=== PATIENT | male | born 1985 | race Two or more races ===

== ENCOUNTER 2022-12-27 18:38 | Emergency (ER) | payer OTHER, SELFPAY ==
[2022-12-27 18:50] VITALS: BP 116/67; PULSE 93; RESP 19; TEMP 36.7; O2SAT 94; BMI 26.1
--- NOTE | 2022-12-27 18:52 | ED_ITS ---
HPI - Abdominal Pain General Chief Complaint: Abdominal Pain Stated Complaint: Abdominal pain Time Seen by Provider: 12/27/22 23:19 Source: patient Mode of arrival: ambulatory Limitations: no limitations History of Present Illness HPI narrative: Patient with anxiety , substance/cocaine abuse, chronic abdominal pain for last 2 years no nausea no vomiting no diarrhea pain localized to the left gets worse when she gets anxious and after eating food has normal bowel movements no fever no chills Related Data Previous Rx's Medication Instructions Recorded dicyclomine 20 mg tablet 20 mg PO QID PRN abdominal pain 12/27/22 #20 tabs omeprazole 40 mg capsule,delayed 40 mg PO DAILY #20 caps 12/27/22 release Allergies Allergy/AdvReac Type Severity Reaction Status Date / Time couch Allergy Rash Verified 12/27/22 18:56 mite-Dermatophagoides Allergy Sneezing Verified 12/27/22 18:56 farinae, adilene [dust mite - [place]] Review of Systems Review of Systems Yes all other systems are reviewed and are negative [facility] Social History Social History Advance Directives: No Advance Directives Information Provided: No Physical Exam ED Vital Signs: Vital Signs - 24 hr 12/27/22 18:50 Temperature 98.0 F Pulse Rate 93 Respiratory Rate 19 Blood Pressure 116/67 Pulse Oximetry 94 Oxygen Delivery Method Room Air BMI result Body Mass Index 26.1 Appearance: Alert. Oriented X3. No acute distress. Eyes: No pallor or icterus ENT: Pharynx normal. Oral Mucosa moist Neck: Normal inspection. Neck supple. CVS: Normal heart rate and rhythm. Pulses normal. Respiratory: No respiratory distress. Equal air entry bilateral, no wheezing/rales/rhonchi Abdomen: Soft , Bowel sounds are present, mild diffuse tenderness left upper abdomen and epigastric no rebound tenderness or guarding Skin: Skin warm and dry. Normal skin color. Normal skin turgor. Extremities: No lower extremity edema. No calf tenderness Neuro: Oriented X 3. Course Course Course Narrative: RME: 37yo M w/no sig PMHx c/o L sided abdominal pain x3 years worsening yesterday. Pain worse after eating. denies N/V, diarrhea, urinary sx, fever Labs, UA ordered Full HPI, ROS and PE to be performed by primary ED provider. Medical Decision Making Medical Decision Making MDM Narrative: Patient anxiety nonspecific abdominal pain likely GERD/IBS discharge patient home on Prilosec and dissect Differential Diagnosis Differential Diagnoses: The differential diagnosis associated with the presentation includes Nonspecific and oral pain/anxiety/GERD/IBS Lab Data [facility] Lab Attestation statement: I reviewed the patient's lab results. 12/27/22 19:20 12/27/22 19:20 Labs: Lab Results 12/27/22 Range/Units 19:20 WBC 8.1 (4.8-10.8) X10*3/uL RBC 4.68 (4.60-5.80) X10*6/uL Hgb 14.5 (14.0-18.0) g/dl Hct 42.3 (42.0-52.0) % MCV 90.4 (80.0-98.0) fL MCH 31.0 (27.0-33.0) pg MCHC 34.3 (31.0-36.0) g/dl RDW 13.4 (11.0-16.0) % Plt Count 237 (160-400) X10*3/uL MPV 10.3 (9.4-12.4) fL Immature Gran % (Auto) 0.2 (0.0-0.4) % Neut % (Auto) 55.2 (45-73) % Lymph % (Auto) 35.6 (20-40) % [place] % (Auto) 6.4 (2-11) % Eos % (Auto) 2.1 (0-4) % Baso % (Auto) 0.5 (0-2) % Lymph # (Auto) 2.9 (1.2-4.9) X10*3/uL [place] # (Auto) 0.5 (0.1-1.2) X10*3/uL Eos # (Auto) 0.2 (0.0-0.4) X10*3/uL Baso # (Auto) 0.0 (0.0-0.2) X10*3/uL Abs Immat Gran (auto) 0.02 (0.00-0.03) X10*3/uL Absolute Neuts (auto) 4.5 (2.0-8.3) x10*3/uL Absolute Nucleated RBC 0.000 (0.0-0.012) X10*3/uL Nucleated RBC % (auto) 0.0 (0.0-0.2) /100WBC Sodium 144 (135-145) mmol/L Potassium 3.9 (3.3-5.1) mmol/L Chloride 108 (96-108) mmol/L Carbon Dioxide 19 L (22-29) mmol/L Anion Gap 21 H (12-20) BUN 14 (9-16) mg/dL Creatinine 0.75 (0.5-1.4) mg/dL Estim Creat Clear Calc 99.3 Estimated GFR > 60 Random Glucose 88 (60-115) mg/dL Calcium 10.0 (8.4-10.2) mg/dL Magnesium 2.0 (1.6-2.6) mg/dL Total Bilirubin 0.2 (0.0-1.0) mg/dL Direct Bilirubin < 0.2 (0.0-0.5) mg/dL AST 13 (5-37) U/L ALT 12 (0-40) U/L Alkaline Phosphatase 64 (39-117) U/L Total Protein 7.0 (6.5-8.0) g/dL Albumin 4.4 (3.5-5.0) g/dL Lipase 35 (8-78) U/L Urine Color Yellow Urine Appearance Clear Urine pH 6.0 (5.0-9.0) Ur Specific [place] 1.025 (1.005-1.025) Urine Protein Negative (Neg-Trace) mg/dL Urine Glucose (UA) Negative (Negative) mg/dL Urine Ketones Negative (Negative) mg/dL Urine Blood Negative (Negative) Urine Nitrite Negative (Negative) Ur Leukocyte Esterase Negative (Negative) Discharge Plan Discharge Clinical Impression: Irritable bowel syndrome, Chronic GERD Patient Disposition: Home, Self-Care Instructions: Irritable Bowel Syndrome (ED), Gastroesophageal Reflux Disease (ED) Additional Instructions: Drink plenty of fluids Avoid fried food Take medication as prescribed and follow with PCP Prescriptions: New dicyclomine 20 mg tablet 20 mg PO QID PRN (Reason: abdominal pain) Qty: 20 0RF omeprazole 40 mg capsule,delayed release(DR/EC) 40 mg PO DAILY Qty: 20 0RF Stand Alone Forms: Work/School Release
--- NOTE | 2022-12-27 19:22 | MHC.EDTECH ---
Patient brought to triage area,labs and urine sample were obtained and sent to lab and patient brought to waiting area.
[2022-12-27 19:29] LABS: MANUAL DIFF FLAG NO
[2022-12-27 19:31] LABS: Basophils Percent Auto 0.5 % (0-2); Eosinophils Absolute Auto 0.2 X10*3/uL (0.0-0.4); Eosinophils Percent Auto 2.1 % (0-4); Hematocrit 42.3 % (42.0-52.0); Hemoglobin 14.5 g/dl (14.0-18.0); Imm Gran Abs Auto 0.02 X10*3/uL (0.00-0.03); Imm Gran Pct Auto 0.2 % (0.0-0.4); Lymphocytes Absolute Auto 2.9 X10*3/uL (1.2-4.9); Lymphocytes Percent Auto 35.6 % (20-40); Mean Corpuscular HGB Conc 34.3 g/dl (31.0-36.0); Mean Corpuscular Volume 90.4 fL (80.0-98.0); Mean Platelet Volume 10.3 fL (9.4-12.4); Monocytes Absolute Auto 0.5 X10*3/uL (0.1-1.2); Monocytes Percent Auto 6.4 % (2-11); Neutrophils Absolute Auto 4.5 x10*3/uL (2.0-8.3); Neutrophils Percent Auto 55.2 % (45-73); Platelet Count 237 X10*3/uL (160-400); Red Blood Count 4.68 X10*6/uL (4.60-5.80); Red Cell Distribution Width 13.4 % (11.0-16.0); White Blood Count 8.1 X10*3/uL (4.8-10.8)
[2022-12-27 19:32] LABS: Appearance Urine Clear; Color Urine Yellow; Glucose Urine UA Negative (Negative); Leukocyte Esterase Urine Negative (Negative); Nitrite Urine Negative (Negative); Specific Gravity - Urine 1.025 (1.005-1.025); Urine Blood Negative (Negative); Urine Ketones Negative (Negative); Urine Protein Negative (Neg-Trace)
[2022-12-27 20:00] LABS: Alanine Aminotransferase 12 U/L (0-40); Albumin Level 4.4 g/dL (3.5-5.0); Alkaline Phosphatase 64 U/L (39-117); Anion Gap 21 (12-20); Aspartate Amino Transferase 13 U/L (5-37); Bilirubin Direct < 0.2 mg/dL (0.0-0.5); Bilirubin Total 0.2 mg/dL (0.0-1.0); Blood Urea Nitrogen 14 mg/dL (9-16); Carbon Dioxide 19 mmol/L (22-29); Chloride 108 mmol/L (96-108); Creatinine Clr Calc Pharmacy 99.3; Estimated Glomerular Filt Rate > 60; Glucose Random 88 mg/dL (60-115); Lipase 35 U/L (8-78); Potassium 3.9 mmol/L (3.3-5.1); Sodium 144 mmol/L (135-145)
[2022-12-27] MEDS: Dicyclomine HCl 10 MG CAPSULE 20 MG PO (23:57)
[2022-12-27] MEDS: Omeprazole 40 MG CAPSULE.DR PO (23:57)
[2022-12-28 00:03] VITALS: BP 123/75; PULSE 80; RESP 18; TEMP 36.3; O2SAT 98
== END 2022-12-28 00:06 | disposition home or self-care (01) ==
PROVIDERS: Physician Assistant; Emergency Provider Internal Medicine
DX: K58.9 Irritable bowel syndrome, unspecified (principal); K21.9 Gastro-esophageal reflux disease without esophagitis
CPT/HCPCS: 36415; 80048; 80076; 81003; 83690; 83735; 85025; 99283

== ENCOUNTER 2024-09-27 12:45 | Emergency (ER) | payer OTHER, SELFPAY ==
[2024-09-27 12:50] VITALS: BP 141/77; PULSE 92; O2SAT 100
--- NOTE | 2024-09-27 12:50 | ED_ITS ---
HPI - General Adult General Chief complaint: Overdose Stated complaint: OD. 8MG NARCAN GIVEN Time Seen by Provider: 09/27/24 12:47 Source: patient, EMS, RN notes reviewed and old records reviewed Mode of arrival: EMS Limitations: no limitations History of Present Illness ED Provider: Jacky [facility] narrative: Patient is a 39-year-old male with history of anxiety, substance use presenting to the emergency department after overdose. Patient reportedly given 8 mg of intranasal Narcan per EMS. Patient states that he was only using marijuana this morning, did not intentionally use any other drugs or alcohol. He denies any suicidal or homicidal ideation. He states he is not interested in assistance with detox as he believes he was only using marijuana this morning. Denies any physical complaints. MD complaint: overdose Related Data Previous Rx's ?Medication ?Instructions ?Recorded dicyclomine 20 mg tablet 20 mg PO QID PRN abdominal pain 12/27/22 #20 tabs omeprazole 40 mg capsule,delayed 40 mg PO DAILY #20 ca ps 12/27/22 release Allergies Allergy/AdvReac Type Severity Reaction Status Date / Time couch Allergy Rash Verified 09/27/24 13:08 mite-Dermatophagoides Allergy Sneezing Verified 09/27/24 13:08 farzeke adilene (dust mite - [place]) Review of Systems Review of Systems: As per HPI Yes all other systems are reviewed and are negative Constitutional: Constitutional: Reports as per HPI [facility] Social History Social History (System 03/22/23 @ 14:27 by Fior Grijalva) Smoked in Last 30 Days: No Use of substances other than those prescribed or required for medical reasons: No Advance Directives: No Advance Directives Information Provided: Yes Do you have a plan to hurt others: No Plan Physical Exam ED Vital Signs: Vital Signs - 24 hr 09/27/24 13:01 Temperature 99.1 F Pulse Rate 88 Respiratory Rate 16 Blood Pressure 125/88 Pulse Oximetry 99 Oxygen Delivery Method Room Air BMI result Body Mass Index 26.4 Const General: cooperative, healthy appearing and no acute distress Orientation/consciousness: oriented to person, oriented to place, oriented to time and patient oriented x3 Limitations: no limitations HENMT Head: Yes normocephalic and Yes atraumatic Ears: external ears normal General nose exam: Normal external nose present Face and sinus: Yes face symmetric Mouth: oropharynx normal and moist mucous membranes Throat: Yes uvula midline Eyes Pupils: Equal, round and reactive pupils present Neck Neck: Yes normal visual inspection and Yes supple Resp Effort & Inspection: normal respiratory effort and able to speak in complete sentences Auscultation: clear to auscultation bilaterally Cardio Rate: regular rate Rhythm: regular rhythm Heart sounds: S1 normal heart sound present and S2 normal heart sound present GI Palpation (GI): Soft to palpation and nontender Auscultation: normoactive bowel sounds General: Yes no CVA tenderness Back/Spine/Pelvis Back: no CVA tenderness Skin General skin exam: elasticity normal and turgor normal Neuro General: oriented to person, oriented to place, oriented to time, patient oriented x3, moves all extremities, no focal motor deficits and CN's II-XI in tact bilaterally Cranial nerves: Yes Equal, round and reactive pupils present Cognition (Neuro): normal cognition Extrem General: Yes full ROM, Yes no pedal edema and Yes no calf tenderness Psych Mental Status: mental status grossly normal Affect: normal affect Thought process: Normal thought process present Medical Decision Making Medical Decision Making MDM Narrative: Patient is a 39-year-old male with history of anxiety, substance use presenting to the emergency department after overdose. On exam patient is awake, A+Ox3, VS WNL, afebrile, normal neurological exam without focal deficits, physical exam findings as above. Given reported symptoms and physical exam findings, initial differential includes but is not limited to drug overdose, drug or alcohol ingestion or withdrawal. Patient refusing labs. States he wants to be discharged. Discussed that patient will need to be observed in the ED to ensure that he does not become unresponsive again when Narcan wears off. Patient verbalized understanding of this. Patient observed in the emergency department for 3 hours without change in mental status, he has remained awake, alert and oriented x3 the entire time. Feel patient is stable for discharge at this time. Patient provided with take home Narcan. Return precautions discussed. Patient verbalized understanding of and agreement with plan. Differential Diagnosis Differential Diagnoses: The differential diagnosis associated with the presentation includes as per mdm Admission/Observation Consideration of admission/observation: Escalation of care including admission/observation considered Patient would have been admitted to the hospital had their clinical presentation warranted hospital admission. External Record Review External record reviewed: Inpatient record, Office record and Outpatient record Prescription Management I considered prescription management with: Other (Narcan) Discharge Plan Discharge Clinical Impression: Drug overdose Qualifiers: Encounter type: initial encounter Injury intent: accidental or unintentional Qualified Code(s): T50.901A - Poisoning by unspecified drugs, medicaments and biological substances, accidental (unintentional), initial encounter Patient Disposition: Home, Self-Care Instructions: Adult Overdose (ED) Additional Instructions: Overdose You were seen in our Emergency Department for an overdose today. You received narcan in order to reverse the effects of overdose. Narcan only lasts about 45 min to 1 hour in the system. You may have been given narcan to take home with you today, please keep it near you if you are going to use again, so others can use it if needed.? The number one risk for fatal overdose is using alone? [employer] is a 19/09 hotline where you can be on the phone with someone while you use, and they can call for help if they suspect an overdose: [phone] Things to look out for when you leave include severe vomiting or diarrhea, headaches, muscle cramps, fever, coughing, chest pain, or if you feel so short o f breath you cannot walk to the bathroom. Please seek care and return any time for worsening symptoms.? You may have been provided with safer injection?items, please take time to take care of YOU and your health. Use new supplies whenever possible to lessen the chances of infections and other illnesses.? If you need more supplies, please go [facility],? [address] [place] [address] OR you can call or text to coordinate delivery of safer supplies. If you decide you want to stop or cut down on how much you?re using, please call the numbers on the list provided to you or you can come to our outpatient Addiction Treatment office [facility] (M-F 9am-5p) [address] [place] [address], [address] [phone] Prescriptions: No Action dicyclomine 20 mg tablet 20 mg PO QID PRN (Reason: abdominal pain) Qty: 20 0RF omeprazole 40 mg capsule,delayed release(DR/EC) 40 mg PO DAILY Qty: 20 0RF Print Language: Mong[place]ian
[2024-09-27 13:01] VITALS: BP 125/88; PULSE 88; RESP 16; TEMP 37.3; O2SAT 99; BMI 26.4
--- NOTE | 2024-09-27 13:18 | PC.NURSE ---
Pt refusing blood work, demanding to leave. Provider Leticia made aware. Patient stating the police did not give me any medicine, they are lying to you . Informed patient he has to stay for at least an hour to make sure he doesn't fall back asleep. Patient agitated.
== END 2024-09-27 15:51 | disposition home or self-care (01) ==
PROVIDERS: Emergency Provider Emergency Medicine Emergency Medical Services
DX: T65.91XA Toxic effect of unspecified substance, accidental (unintentional), initial encounter (principal); F41.9 Anxiety disorder, unspecified; Y92.9 Unspecified place or not applicable; F19.99 Other psychoactive substance use, unspecified with unspecified psychoactive substance-induced disorder
CPT/HCPCS: 99282; 99284